=== PATIENT | male | born 1995 | race Caucasian/White ===

== ENCOUNTER 2017-10-12 20:36 | Emergency (ER) | payer BC, MEDICAID, OTHER | END 2017-10-12 22:50 | disposition home or self-care (01) | LOC: FTE 20:36 | DX: S89.91XA Unspecified injury of right lower leg, initial encounter (principal); V00.131A Fall from skateboard, initial encounter; Y92.9 Unspecified place or not applicable | CPT/HCPCS: 29505; 73562; 99283-25 ==